=== PATIENT | female | born 1985 | race Caucasian/White ===

== ENCOUNTER 2018-10-18 00:19 | Inpatient (IN) ==
--- OUTSIDE RECORDS SUMMARY | 2018-10-18 00:24 | External Medical Summary | Continuity of Care Document ---
:1985 Author Name Luz Elena Gutierrez Address Unavailable Unavailable , Care Team Providers Name Role Phone Unavailable Unavailable Unavailable Joe Veras III, M.D. Unavailable [email or web address] NEHEMIAS VERAS M.D., Natty Unavailable Unavailable Unavailable Unavailable Unavailable Problems Headache (784.0) (R51) Abdominal pain (789.00) (R10.9) Acute sinusitis (461.9) (J01.90) Esophageal reflux (530.81) (K21.9) Chronic obstructive pulmonary disease (496) (J44.9) Vaginal candidiasis (112.1) (B37.3) Nausea with vomiting (787.01) (R11.2) Allergies and Adverse Reactions Codeine Derivatives (Allergy) Erythromycin Derivatives (Allergy) Medications Pre-Satish Formula Oral Tablet KINDRA Danielle tart: 24-Apr-2010 Refills: 0 Fluconazole 150 MG Oral Tablet; TAKE ONE TABLET ONCE DAILY, MAY REPEAT IN 24 HOURS IF NEEDED. KINDRA Danielle Start: 12-Jun-2010 Quantity: 2 Refills: 0 raNITIdine HCl - 150 MG Oral Capsule; TAKE 1 CAPSULE T WICE DAILY. Brenda Veras III Start: 06-Nov-2010 Quantity: 60 Refills: 2 Procedures History of Knee Surgery Status: Complete d History of Elbow Surgery Status: Complet ed History of Diagnostic Esophagogastroduodenoscopy Status: Completed Immunizations Immunizations not documented Family History Unknown Family Member Family history of Diabetes Mellitus (V18.0) Status: Active Comments: Family History Family history of Hypertension (V17.49) Status: Active Comments: Family History Family history of Renal Disease Status: Active Comments : Family History Plan of Treatment Planned Observations Planned Goals not documented Results No Known Results Results not documented
[2018-10-18] MEDS: LACTATED RINGER'S 1,000 ML IV PRN ×4 (01:34→16:55)
[2018-10-18] MEDS ORDERED: OXYTOCIN 30 UNITS/500 ML BAG IV PRN ×3 (05:26→20:14)
[2018-10-18] MEDS ORDERED: LACTATED RINGER'S 1,000 ML IV PRN (05:26)
[2018-10-18 05:55] LABS: Hematocrit (blood only) 37.4 % (37-47); Hemoglobin 12.8 g/dL (12.0-16.0); Mean Corpuscular Volume 87.8 fL (80-100); Mean Platelet Volume 10.6 fL (7.4-10.4); Platelet Count 263 K/uL (130-400); RDW Coefficient of Variation 14.5 % (11.5-14.5); RDW Standard Deviation 46.2 fL (36.4-46.3); Red Blood Count 4.26 M/uL (4.2-5.4); White Blood Count 16.58 K/uL (4.8-10.8)
[2018-10-18 05:57] LABS: Mean Corpuscular Hgb Conc 34.2 g/dL (32-36)
[2018-10-18] MEDS ORDERED: BUPIVACAINE 0.25% 30 ML VIAL ONE ×3 (06:11→18:26)
[2018-10-18] MEDS ORDERED: ePHEDrine sulfate 50 MG/ML AMP ONE (06:12)
[2018-10-18] MEDS ORDERED: fentaNYL citrate 100 MCG/2 ML VIAL ONE ×2 (06:12→18:45)
[2018-10-18] MEDS ORDERED: fentaNYL 2MCG/ML ROPIV 1.25MG/ML 100 ML BAG EPI ONE (06:13)
[2018-10-18] MEDS ORDERED: ONDANSETRON INJ 2 MG/ML 2 ML VIAL IV PRN (06:18)
[2018-10-18] MEDS ORDERED: NALOXONE HCL 0.4 MG/1 ML VIAL/CARP IV PRN (06:18)
[2018-10-18] MEDS ORDERED: DiphenhydrAMINE HCL 50 MG/ML VIAL IV PRN (06:18)
[2018-10-18] MEDS ORDERED: NALOXONE HCL 1 MG in SODIUM CHLORIDE 0.9% 1000ML 1,000 ML IV PRN (06:18)
[2018-10-18] MEDS ORDERED: fentaNYL 2MCG/ML ROPIV 1.25MG/ML 100 ML BAG EPI PRN (06:18)
[2018-10-18] MEDS ORDERED: ePHEDrine sulfate 50 MG/ML AMP IV PRN (06:18)
--- NOTE | 2018-10-18 06:20 | Anesthesiology Consultation ---
Date of Service October 18, 2018 Assessment & Plan (1) Encounter for pre-operative examination: Chart Review Chart Review: Patient NOT seen in Pre Admission Testing and Acceptable Risk for Labor Epidural Consults Requested none History Height/Weight Height: 5 ft 4 in Weight: 101.605 kg Allergies Allergy/AdvReac Type Severity Reaction Status Date / Time codeine Allergy Unknown Unknown Verified 10/18/18 00:35 erythromycin base Allergy Unknown Unknown Verified 10/18/18 00:35 Medications Home Medications Medication Instructions Recorded Confirmed Last Taken PNV cmb#95-ferrous fumarate-FA 1 tab PO DAILY 10/18/18 10/18/18 10/16/18 20:00 [] doxylamine-pyridoxine (vit B6) 1 tab PO BID 10/18/18 10/18/18 10/17/18 20:00 [Diclegis] Active Medications Generic Name Dose Route Start Last Admin Trade Name Freq PRN Reason Stop Dose Admin Lactated Ringer's 1,000 mls @ 125 mls/hr 10/18/18 01:30 10/18/18 06:08 Lr IV 11/17/18 01:29 125 mls/hr .Q8H PRN Administration L&D Protocol Protocol Past Medical History Medical History Parker's cyst of knee Bartholin cyst Migraine Polyhydramnios with current Spontaneous vaginal delivery 11/2008 [facility] [place] 04/2010 LFC - daughter with coarctation of aorta - surgery at age 3 Exercise / Class Metabolic Activity II 4-5 Yardwork/Stairs/Walk up hill Past Family History Family History Grandmother (Maternal) Diabetes Hypertension Past Surgical History Surgical History Hx laparoscopic cholecystectomy 2010 Past Anesthesia History No Hx of Anesthesia Complications and No Family Hx of Anesthesia Complications History of PONV No Hx of PONV and No Hx of Motion Sickness Social History Smoking Status: Never smoker Hx Alcohol Use: No Hx Substance Use: No Physical Exam Vital Signs Last Vital Signs Temp 37.0 C 10/18/18 05:05 Pulse 94 H 10/18/18 06:37 Resp 18 10/18/18 04:36 BP 139/65 10/18/18 06:37 Pulse Ox 99 10/18/18 06:34 Testing Laboratory Results 10/18/18 05:45
--- NOTE | 2018-10-18 06:40 | Labor Progress Brief Note ---
Date of Service October 18, 2018 Pt admitted for SROM H&P done FHR; CAT 1 after position change and IVH VE: 1cm by nurse ctx; 2-3mins pt requesting epidural analgesia Results & Data Vital Signs (Past 12 Hours) Vital Signs Temp Pulse Resp BP Pulse Ox 10/18/18 06:37 94 H 139/65 10/18/18 06:34 92 H 99 10/18/18 06:29 85 100 10/18/18 06:24 93 H 100 10/18/18 06:20 82 128/66 10/18/18 06:19 85 99 10/18/18 05:05 37.0 C 10/18/18 04:36 36.9 C 94 H 18 135/88 10/18/18 00:39 36.9 C 89 20 133/85 10/18/18 00:27 36.9 C 20 10/18/18 00:26 89 133/85
--- NOTE | 2018-10-18 10:05 | History and Physical Report ---
DATE OF ADMISSION: 10/18/2018 HISTORY OF PRESENT ILLNESS: The patient is a 33-year-old G3, P2, due date 11/14/2018 making it 36 weeks and 1 day, presented to labor and delivery with contractions every 3-4 minutes. The patient was observed for several hours. On arrival to labor and delivery, the patient had repeated late decelerations. The patient's position was changed. The strip improved to category 1. She was observed for several hours and eventually had spontaneous rupture of membranes, which was clear. Decision was therefore made to admit the patient. COURSE: Has been unremarkable except for history of gestational diabetes, on medications, and polyhydramnios. PAST MEDICAL HISTORY: 1. History of Bartholin glands abscess. 2. Nevus. 3. Depression. 4. Obesity class 1. 5. Migraines. 6. Anxiety. PAST SURGICAL HISTORY: History of laparoscopy and cholecystectomy with cholangiography. SOCIAL HISTORY: The patient denies tobacco, drug, or alcohol use. OBSTETRIC AND GYNECOLOGIC HISTORY: The patient had 2 vaginal deliveries, both were term, delivered a 7 pound 11 ounce baby in 2008 and a 6 pound 11 ounce baby in April 2010. PHYSICAL EXAMINATION: GENERAL: Well-developed, well-nourished white female in no acute distress. VITAL SIGNS: Blood pressure 96/95, pulse is 90, respirations 18. HEART: S1, S2, regular rhythm and rate. LUNGS: Clear to auscultation bilaterally. ABDOMEN: Gravid. heart rate is category 1. PELVIC: Last pelvic exam shows she was 4 cm dilated and -1 station. EXTREMITIES: No cyanosis, clubbing, or edema. ASSESSMENT: 1. A 33-year-old 3, para 2, with premature rupture of membranes. 2. Gestational diabetes. 3. Polyhydramnios. PLAN: Anticipate vaginal delivery.
[2018-10-18] MEDS ORDERED: ACETAMINOPHEN 325 MG TAB PO STA (10:32)
--- NOTE | 2018-10-18 12:40 | Labor Progress Brief Note ---
Date of Service October 18, 2018 Pt doing well FHR; CAT1 Ctx. 5-7 mins VE; 5-6/50/-1 will start Pitocin Results & Data Vital Signs (Past 12 Hours) Vital Signs Temp Pulse Resp BP Pulse Ox 10/18/18 12:34 89 100 10/18/18 12:33 83 135/63 10/18/18 12:29 87 98 10/18/18 12:24 84 99 10/18/18 12:19 88 141/75 H 100 10/18/18 12:14 84 98 10/18/18 12:09 85 98 10/18/18 12:05 81 122/78 10/18/18 12:04 80 99 10/18/18 11:59 82 98 10/18/18 11:54 100 H 98 10/18/18 11:50 82 102/62 10/18/18 11:49 83 98 10/18/18 11:44 85 98 10/18/18 11:39 88 99 10/18/18 11:34 82 99 10/18/18 11:33 77 114/69 10/18/18 11:30 18 10/18/18 11:29 85 98 10/18/18 11:24 97 H 99 10/18/18 11:19 94 H 99 10/18/18 11:18 84 104/63 10/18/18 11:14 95 H 99 10/18/18 11:09 104 H 99 10/18/18 11:04 81 102/55 L 99 10/18/18 11:00 18 10/18/18 10:59 85 98 10/18/18 10:54 90 98 10/18/18 10:49 95 H 99 10/18/18 10:48 85 114/64 10/18/18 10:44 87 99 10/18/18 10:39 83 98 10/18/18 10:34 86 117/72 98 10/18/18 10:30 18 10/18/18 10:29 84 98 10/18/18 10:24 80 99 10/18/18 10:19 84 114/57 L 100 10/18/18 10:14 84 100 10/18/18 10:09 95 H 99 10/18/18 10:04 80 99 10/18/18 10:03 90 120/70 10/18/18 10:00 18 10/18/18 09:59 81 99 10/18/18 09:54 81 100 10/18/18 09:49 80 100 10/18/18 09:48 83 120/68 10/18/18 09:44 78 99 10/18/18 09:39 78 100 10/18/18 09:34 86 127/70 100 10/18/18 09:30 18 10/18/18 09:29 82 100 10/18/18 09:24 81 99 10/18/18 09:19 81 100 10/18/18 09:18 85 122/74 10/18/18 09:14 107 H 98 10/18/18 09:09 94 H 100 10/18/18 09:04 89 100 10/18/18 09:03 84 110/67 10/18/18 09:01 36.6 C 10/18/18 09:00 18 10/18/18 08:59 91 H 100 10/18/18 08:54 82 100 10/18/18 08:49 95 H 100 10/18/18 08:48 89 107/66 10/18/18 08:44 125 H 100 10/18/18 08:39 92 H 99 10/18/18 08:34 87 99 10/18/18 08:33 99 H 100/53 L 10/18/18 08:30 18 10/18/18 08:29 87 98 10/18/18 08:24 90 99 10/18/18 08:19 109 H 99 10/18/18 08:18 123 H 96/55 L 10/18/18 08:14 78 99 10/18/18 08:09 99 H 100 10/18/18 08:04 85 108/64 100 10/18/18 08:00 18 10/18/18 07:59 80 99 10/18/18 07:54 81 98 10/18/18 07:49 127 H 100 10/18/18 07:48 115 H 119/57 L 10/18/18 07:45 18 10/18/18 07:44 113 H 100 10/18/18 07:39 101 H 100 10/18/18 07:34 84 124/66 99 10/18/18 07:31 18 10/18/18 07:29 76 98 10/18/18 07:24 109 H 100 10/18/18 07:19 119 H 100 10/18/18 07:18 103 H 118/60 10/18/18 07:16 127 H 18 118/62 10/18/18 07:14 122 H 121/62 100 10/18/18 07:12 115 H 120/60 10/18/18 07:10 96 H 125/61 10/18/18 07:09 99 H 100 10/18/18 07:08 89 129/60 10/18/18 07:06 100 H 123/60 10/18/18 07:05 36.7 C 18 10/18/18 07:04 92 H 128/60 100 10/18/18 07:02 96 H 121/63 10/18/18 07:00 97 H 122/63 10/18/18 06:59 103 H 100 10/18/18 06:57 95 H 116/56 L 10/18/18 06:56 96 H 114/63 10/18/18 06:54 94 H 113/59 L 100 10/18/18 06:52 94 H 116/59 L 10/18/18 06:50 96 H 109/57 L 10/18/18 06:49 96 H 100 10/18/18 06:48 91 H 113/58 L 10/18/18 06:46 95 H 115/56 L 10/18/18 06:44 91 H 114/58 L 99 10/18/18 06:42 91 H 110/57 L 10/18/18 06:39 96 H 100 10/18/18 06:37 94 H 139/65 10/18/18 06:34 92 H 99 10/18/18 06:29 85 100 10/18/18 06:24 93 H 100 10/18/18 06:20 82 128/66 10/18/18 06:19 85 99 10/18/18 05:05 37.0 C 10/18/18 04:36 36.9 C 94 H 18 135/88
[2018-10-18] MEDS ORDERED: ACETAMINOPHEN 325 MG TAB PO PRN ×3 (15:03→20:14)
--- NOTE | 2018-10-18 17:22 | Labor Progress Brief Note ---
Date of Service October 18, 2018 Pt doing well SROM Afebrile, No abd tenderness, No foul disch VE; 8/72/-1 Pitocin d/secd because of poor tracing Oxygen given and infanr resusitated FHR is much improved scalp is placed Results & Data Vital Signs (Past 12 Hours) Vital Signs Temp Pulse Resp BP Pulse Ox 10/18/18 17:18 77 127/68 10/18/18 17:14 79 100 10/18/18 17:09 81 100 10/18/18 17:04 77 100 10/18/18 17:03 76 128/69 10/18/18 17:01 37.1 C 18 10/18/18 17:00 18 10/18/18 16:59 77 100 10/18/18 16:54 95 H 100 10/18/18 16:49 76 130/64 100 10/18/18 16:44 74 100 10/18/18 16:39 83 100 10/18/18 16:34 83 100 10/18/18 16:33 78 121/67 10/18/18 16:30 18 10/18/18 16:29 78 100 10/18/18 16:24 73 100 10/18/18 16:19 71 129/74 100 10/18/18 16:14 79 100 10/18/18 16:09 79 100 10/18/18 16:04 78 100 10/18/18 16:03 73 127/76 10/18/18 16:00 18 10/18/18 15:59 76 100 10/18/18 15:54 80 99 10/18/18 15:49 88 100 10/18/18 15:48 88 130/78 10/18/18 15:44 89 100 10/18/18 15:39 75 99 10/18/18 15:34 76 124/66 99 10/18/18 15:29 81 99 10/18/18 15:24 85 99 10/18/18 15:19 88 118/71 99 10/18/18 15:14 110 H 100 10/18/18 15:09 82 99 10/18/18 15:04 89 115/64 98 10/18/18 15:00 18 10/18/18 14:59 87 99 10/18/18 14:55 36.8 C 10/18/18 14:54 107 H 99 10/18/18 14:49 85 98 10/18/18 14:48 99 H 117/69 10/18/18 14:44 80 98 10/18/18 14:39 109 H 98 10/18/18 14:34 110 H 99 10/18/18 14:33 87 117/62 10/18/18 14:30 18 10/18/18 14:29 108 H 99 10/18/18 14:24 81 99 10/18/18 14:19 85 99 10/18/18 14:18 80 117/61 10/18/18 14:17 77 111/62 10/18/18 14:14 87 99 10/18/18 14:09 83 98 10/18/18 14:05 80 119/67 10/18/18 14:04 76 99 10/18/18 13:59 77 98 10/18/18 13:54 86 99 10/18/18 13:49 82 99 10/18/18 13:48 83 111/67 10/18/18 13:44 78 98 10/18/18 13:39 86 98 10/18/18 13:34 95 H 99 10/18/18 13:33 85 117/58 L 10/18/18 13:30 18 10/18/18 13:29 78 98 10/18/18 13:24 79 98 10/18/18 13:19 73 120/58 L 98 10/18/18 13:14 75 97 10/18/18 13:09 78 99 10/18/18 13:04 76 120/64 98 10/18/18 13:00 36.9 C 18 10/18/18 12:59 87 99 10/18/18 12:54 85 98 10/18/18 12:49 87 98 10/18/18 12:44 90 98 10/18/18 12:39 83 98 10/18/18 12:34 89 100 10/18/18 12:33 83 135/63 10/18/18 12:30 18 10/18/18 12:29 87 98 10/18/18 12:24 84 99 10/18/18 12:19 88 141/75 H 100 10/18/18 12:14 84 98 10/18/18 12:09 85 98 10/18/18 12:05 81 122/78 10/18/18 12:04 80 99 10/18/18 11:59 82 98 10/18/18 11:54 100 H 98 10/18/18 11:50 82 102/62 10/18/18 11:49 83 98 10/18/18 11:44 85 98 10/18/18 11:39 88 99 10/18/18 11:34 82 99 10/18/18 11:33 77 114/69 10/18/18 11:30 18 10/18/18 11:29 85 98 10/18/18 11:24 97 H 99 10/18/18 11:19 94 H 99 10/18/18 11:18 84 104/63 10/18/18 11:14 95 H 99 10/18/18 11:09 104 H 99 10/18/18 11:04 81 102/55 L 99 10/18/18 11:01 36.6 C 10/18/18 11:00 18 10/18/18 10:59 85 98 10/18/18 10:54 90 98 10/18/18 10:49 95 H 99 10/18/18 10:48 85 114/64 10/18/18 10:44 87 99 10/18/18 10:39 83 98 10/18/18 10:34 86 117/72 98 10/18/18 10:30 18 10/18/18 10:29 84 98 10/18/18 10:24 80 99 10/18/18 10:19 84 114/57 L 100 10/18/18 10:14 84 100 10/18/18 10:09 95 H 99 10/18/18 10:04 80 99 10/18/18 10:03 90 120/70 10/18/18 10:00 18 10/18/18 09:59 81 99 10/18/18 09:54 81 100 10/18/18 09:49 80 100 10/18/18 09:48 83 120/68 10/18/18 09:44 78 99 10/18/18 09:39 78 100 10/18/18 09:34 86 127/70 100 10/18/18 09:30 18 10/18/18 09:29 82 100 10/18/18 09:24 81 99 10/18/18 09:19 81 100 10/18/18 09:18 85 122/74 10/18/18 09:14 107 H 98 10/18/18 09:09 94 H 100 10/18/18 09:04 89 100 10/18/18 09:03 84 110/67 10/18/18 09:01 36.6 C 10/18/18 09:00 18 10/18/18 08:59 91 H 100 10/18/18 08:54 82 100 10/18/18 08:49 95 H 100 10/18/18 08:48 89 107/66 10/18/18 08:44 125 H 100 10/18/18 08:39 92 H 99 10/18/18 08:34 87 99 10/18/18 08:33 99 H 100/53 L 10/18/18 08:30 18 10/18/18 08:29 87 98 10/18/18 08:24 90 99 10/18/18 08:19 109 H 99 10/18/18 08:18 123 H 96/55 L 10/18/18 08:14 78 99 10/18/18 08:09 99 H 100 10/18/18 08:04 85 108/64 100 10/18/18 08:00 18 10/18/18 07:59 80 99 10/18/18 07:54 81 98 10/18/18 07:49 127 H 100 10/18/18 07:48 115 H 119/57 L 10/18/18 07:45 18 10/18/18 07:44 113 H 100 10/18/18 07:39 101 H 100 10/18/18 07:34 84 124/66 99 10/18/18 07:31 18 10/18/18 07:29 76 98 10/18/18 07:24 109 H 100 10/18/18 07:19 119 H 100 10/18/18 07:18 103 H 118/60 10/18/18 07:16 127 H 18 118/62 10/18/18 07:14 122 H 121/62 100 10/18/18 07:12 115 H 120/60 10/18/18 07:10 96 H 125/61 10/18/18 07:09 99 H 100 10/18/18 07:08 89 129/60 10/18/18 07:06 100 H 123/60 10/18/18 07:05 36.7 C 18 10/18/18 07:04 92 H 128/60 100 10/18/18 07:02 96 H 121/63 10/18/18 07:00 97 H 122/63 10/18/18 06:59 103 H 100 10/18/18 06:57 95 H 116/56 L 10/18/18 06:56 96 H 114/63 10/18/18 06:54 94 H 113/59 L 100 10/18/18 06:52 94 H 116/59 L 10/18/18 06:50 96 H 109/57 L 10/18/18 06:49 96 H 100 10/18/18 06:48 91 H 113/58 L 10/18/18 06:46 95 H 115/56 L 10/18/18 06:44 91 H 114/58 L 99 10/18/18 06:42 91 H 110/57 L 10/18/18 06:39 96 H 100 10/18/18 06:37 94 H 139/65 10/18/18 06:34 92 H 99 10/18/18 06:29 85 100 10/18/18 06:24 93 H 100 10/18/18 06:20 82 128/66 10/18/18 06:19 85 99
[2018-10-18] MEDS ORDERED: fentaNYL citrate 100 MCG/2 ML VIAL INT SPINAL STA (18:47)
[2018-10-18] MEDS ORDERED: METHYLERGONOVINE MALEATE 0.2 MG/ML AMP ONE (20:07)
[2018-10-18] MEDS ORDERED: SUPERCREAM 0.870% 15 GM JAR EXT PRN (20:14)
[2018-10-18] MEDS ORDERED: BISACODYL 10 MG SUPP PR PRN (20:14)
[2018-10-18] MEDS ORDERED: DIPHTHERIA/TETANUS/PERTUSSIS 0.5 ML SYR/VIAL IM ONE (20:14)
[2018-10-18] MEDS ORDERED: BENZOCAINE 20% AER SPR 82.5 GM CAN EXT PRN (20:14)
[2018-10-18] MEDS ORDERED: miSOPROStol 200 MCG TAB PR ONE (20:14)
[2018-10-18] MEDS ORDERED: HYDROCORTISONE ACETATE 25 MG SUPP PR PRN (20:14)
[2018-10-18] MEDS ORDERED: METHYLERGONOVINE MALEATE 0.2 MG/ML AMP IM ONE (20:14)
[2018-10-18] MEDS ORDERED: ONDANSETRON INJ 2 MG/ML 2 ML VIAL ONE (20:29)
[2018-10-18 20:32] LABS: Base Excess Cord Arterial Bld -4.4 mEq/L (-9-1.8); CO2 Cord Arterial Blood 59 mmHg (39.1-73.5); HCO3 Cord Arterial Blood 24 mmol/L (19.7-28.5); pH Cord Arterial Blood 7.23 (7.1-7.38)
[2018-10-18 20:41] LABS: Base Excess Cord Venous Blood -2.5 mEq/L (-7.7-1.9); Cord Venous Blood HCO3 24 mmol/L (18.4-26.8); Cord Venous Blood PCO2 48 mmHg (30.4-57.2); Cord Venous Blood PO2 15 mmHg (14.1-43.3); Cord Venous Blood pH 7.32 (7.20-7.44)
[2018-10-18 20:43] LABS: O2 Saturation Cord Venous Bld < 60.0 % (<68)
--- NOTE | 2018-10-18 22:11 | Anesthesia Procedure Note ---
Date of Service October 18, 2018 Anesthesia Post Epidural Note Vital Signs Vital Signs: Temp Pulse Resp BP Pulse Ox 10/18/18 21:48 88 156/75 H 10/18/18 21:18 90 130/62 10/18/18 21:03 88 126/60 10/18/18 20:48 127/65 10/18/18 20:33 90 134/70 10/18/18 20:27 93 H 137/72 10/18/18 20:26 112 H 167/101 H 10/18/18 20:19 109 H 125/81 10/18/18 20:04 115 H 100 10/18/18 19:59 152 H 100 10/18/18 19:54 123 H 100 10/18/18 19:50 93 H 79 L 10/18/18 19:49 111 H 99 10/18/18 19:48 106 H 149/61 H 10/18/18 19:44 98 H 100 10/18/18 19:39 82 100 10/18/18 19:34 84 127/60 100 10/18/18 19:29 78 100 10/18/18 19:24 82 100 10/18/18 19:20 83 133/68 10/18/18 19:19 103 H 100 10/18/18 19:14 80 100 10/18/18 19:09 89 100 10/18/18 19:04 78 136/67 100 10/18/18 19:00 18 10/18/18 18:59 85 100 10/18/18 18:54 80 100 10/18/18 18:49 82 136/66 100 10/18/18 18:44 82 100 10/18/18 18:39 84 100 10/18/18 18:34 76 138/68 100 10/18/18 18:30 18 10/18/18 18:29 82 100 10/18/18 18:24 80 100 10/18/18 18:19 82 100 10/18/18 18:18 86 138/70 10/18/18 18:14 78 100 10/18/18 18:09 80 100 10/18/18 18:04 75 123/66 100 10/18/18 18:00 18 10/18/18 17:59 76 100 10/18/18 17:54 80 99 10/18/18 17:49 82 124/66 100 10/18/18 17:44 88 100 10/18/18 17:39 77 100 10/18/18 17:35 81 90 10/18/18 17:34 77 126/67 100 10/18/18 17:30 18 10/18/18 17:29 80 100 10/18/18 17:24 78 100 10/18/18 17:19 76 100 10/18/18 17:18 77 127/68 10/18/18 17:14 79 100 10/18/18 17:09 81 100 10/18/18 17:04 77 100 10/18/18 17:03 76 128/69 10/18/18 17:01 37.1 C 18 10/18/18 17:00 18 10/18/18 16:59 77 100 10/18/18 16:54 95 H 100 10/18/18 16:49 76 130/64 100 10/18/18 16:44 74 100 10/18/18 16:39 83 100 10/18/18 16:34 83 100 10/18/18 16:33 78 121/67 10/18/18 16:30 18 10/18/18 16:29 78 100 10/18/18 16:24 73 100 10/18/18 16:19 71 129/74 100 10/18/18 16:14 79 100 10/18/18 16:09 79 100 10/18/18 16:04 78 100 10/18/18 16:03 73 127/76 10/18/18 16:00 18 10/18/18 15:59 76 100 10/18/18 15:54 80 99 10/18/18 15:49 88 100 10/18/18 15:48 88 130/78 10/18/18 15:44 89 100 10/18/18 15:39 75 99 10/18/18 15:34 76 124/66 99 10/18/18 15:29 81 99 10/18/18 15:24 85 99 10/18/18 15:19 88 118/71 99 10/18/18 15:14 110 H 100 10/18/18 15:09 82 99 10/18/18 15:04 89 115/64 98 10/18/18 15:00 18 10/18/18 14:59 87 99 10/18/18 14:55 36.8 C 10/18/18 14:54 107 H 99 10/18/18 14:49 85 98 10/18/18 14:48 99 H 117/69 10/18/18 14:44 80 98 10/18/18 14:39 109 H 98 10/18/18 14:34 110 H 99 10/18/18 14:33 87 117/62 10/18/18 14:30 18 10/18/18 14:29 108 H 99 10/18/18 14:24 81 99 10/18/18 14:19 85 99 10/18/18 14:18 80 117/61 10/18/18 14:17 77 111/62 10/18/18 14:14 87 99 10/18/18 14:09 83 98 10/18/18 14:05 80 119/67 10/18/18 14:04 76 99 10/18/18 13:59 77 98 10/18/18 13:54 86 99 10/18/18 13:49 82 99 10/18/18 13:48 83 111/67 10/18/18 13:44 78 98 10/18/18 13:39 86 98 10/18/18 13:34 95 H 99 10/18/18 13:33 85 117/58 L 10/18/18 13:30 18 10/18/18 13:29 78 98 10/18/18 13:24 79 98 10/18/18 13:19 73 120/58 L 98 10/18/18 13:14 75 97 10/18/18 13:09 78 99 10/18/18 13:04 76 120/64 98 10/18/18 13:00 36.9 C 18 10/18/18 12:59 87 99 10/18/18 12:54 85 98 10/18/18 12:49 87 98 10/18/18 12:44 90 98 10/18/18 12:39 83 98 10/18/18 12:34 89 100 10/18/18 12:33 83 135/63 10/18/18 12:30 18 10/18/18 12:29 87 98 10/18/18 12:24 84 99 10/18/18 12:19 88 141/75 H 100 10/18/18 12:14 84 98 10/18/18 12:09 85 98 10/18/18 12:05 81 122/78 10/18/18 12:04 80 99 10/18/18 11:59 82 98 10/18/18 11:54 100 H 98 10/18/18 11:50 82 102/62 10/18/18 11:49 83 98 10/18/18 11:44 85 98 10/18/18 11:39 88 99 10/18/18 11:34 82 99 10/18/18 11:33 77 114/69 10/18/18 11:30 18 10/18/18 11:29 85 98 10/18/18 11:24 97 H 99 10/18/18 11:19 94 H 99 10/18/18 11:18 84 104/63 10/18/18 11:14 95 H 99 10/18/18 11:09 104 H 99 10/18/18 11:04 81 102/55 L 99 10/18/18 11:01 36.6 C 10/18/18 11:00 18 10/18/18 10:59 85 98 10/18/18 10:54 90 98 10/18/18 10:49 95 H 99 10/18/18 10:48 85 114/64 10/18/18 10:44 87 99 10/18/18 10:39 83 98 10/18/18 10:34 86 117/72 98 10/18/18 10:30 18 10/18/18 10:29 84 98 10/18/18 10:24 80 99 10/18/18 10:19 84 114/57 L 100 10/18/18 10:14 84 100 10/18/18 10:09 95 H 99 10/18/18 10:04 80 99 10/18/18 10:03 90 120/70 10/18/18 10:00 18 10/18/18 09:59 81 99 10/18/18 09:54 81 100 10/18/18 09:49 80 100 10/18/18 09:48 83 120/68 10/18/18 09:44 78 99 10/18/18 09:39 78 100 10/18/18 09:34 86 127/70 100 10/18/18 09:30 18 10/18/18 09:29 82 100 10/18/18 09:24 81 99 10/18/18 09:19 81 100 10/18/18 09:18 85 122/74 10/18/18 09:14 107 H 98 10/18/18 09:09 94 H 100 10/18/18 09:04 89 100 10/18/18 09:03 84 110/67 10/18/18 09:01 36.6 C 10/18/18 09:00 18 10/18/18 08:59 91 H 100 10/18/18 08:54 82 100 10/18/18 08:49 95 H 100 10/18/18 08:48 89 107/66 10/18/18 08:44 125 H 100 10/18/18 08:39 92 H 99 10/18/18 08:34 87 99 10/18/18 08:33 99 H 100/53 L 10/18/18 08:30 18 10/18/18 08:29 87 98 10/18/18 08:24 90 99 10/18/18 08:19 109 H 99 10/18/18 08:18 123 H 96/55 L 10/18/18 08:14 78 99 10/18/18 08:09 99 H 100 10/18/18 08:04 85 108/64 100 10/18/18 08:00 18 10/18/18 07:59 80 99 10/18/18 07:54 81 98 10/18/18 07:49 127 H 100 10/18/18 07:48 115 H 119/57 L 10/18/18 07:45 18 10/18/18 07:44 113 H 100 10/18/18 07:39 101 H 100 10/18/18 07:34 84 124/66 99 10/18/18 07:31 18 10/18/18 07:29 76 98 10/18/18 07:24 109 H 100 10/18/18 07:19 119 H 100 10/18/18 07:18 103 H 118/60 10/18/18 07:16 127 H 18 118/62 10/18/18 07:14 122 H 121/62 100 10/18/18 07:12 115 H 120/60 10/18/18 07:10 96 H 125/61 10/18/18 07:09 99 H 100 10/18/18 07:08 89 129/60 10/18/18 07:06 100 H 123/60 10/18/18 07:05 36.7 C 18 10/18/18 07:04 92 H 128/60 100 10/18/18 07:02 96 H 121/63 10/18/18 07:00 97 H 122/63 10/18/18 06:59 103 H 100 10/18/18 06:57 95 H 116/56 L 10/18/18 06:56 96 H 114/63 10/18/18 06:54 94 H 113/59 L 100 10/18/18 06:52 94 H 116/59 L 10/18/18 06:50 96 H 109/57 L 10/18/18 06:49 96 H 100 10/18/18 06:48 91 H 113/58 L 10/18/18 06:46 95 H 115/56 L 10/18/18 06:44 91 H 114/58 L 99 10/18/18 06:42 91 H 110/57 L 10/18/18 06:39 96 H 100 10/18/18 06:37 94 H 139/65 10/18/18 06:34 92 H 99 10/18/18 06:29 85 100 10/18/18 06:24 93 H 100 10/18/18 06:20 82 128/66 10/18/18 06:19 85 99 10/18/18 05:05 37.0 C 10/18/18 04:36 36.9 C 94 H 18 135/88 10/18/18 00:39 36.9 C 89 20 133/85 10/18/18 00:27 36.9 C 20 10/18/18 00:26 89 133/85 Pain Intensity Bilateral Abdomen: Pain Intensity: 0 Notes Mental Status: alert / awake / arousable and participated in evaluation Nausea / Vomiting: adequately controlled Pain: adequately controlled Airway Patency, RR, SpO2: stable & adequate BP & HR: stable & adequate Hydration State: stable & adequate Neuraxial Anesthesia: was administered and sensory block is resolving Anesthetic Complications: no major complications apparent and Pt Satisfied with anesthetic care Epidural: Removed without complications and With tip intact
[2018-10-18] MEDS: IBUPROFEN 600 MG TAB PO PRN (23:13)
[2018-10-18] MEDS ORDERED: miSOPROStol 200 MCG TAB ONE (23:35)
[2018-10-18] MEDS: DOCUSATE SODIUM 100 MG CAP PO SCH (23:41)
[2018-10-19 06:37] LABS: Hematocrit (blood only) 35.9 % (37-47); Hemoglobin 12.2 g/dL (12.0-16.0); Mean Platelet Volume 10.5 fL (7.4-10.4); Platelet Count 232 K/uL (130-400); RDW Coefficient of Variation 14.3 % (11.5-14.5); RDW Standard Deviation 46.4 fL (36.4-46.3); Red Blood Count 4.08 M/uL (4.2-5.4); White Blood Count 19.43 K/uL (4.8-10.8)
--- NOTE | 2018-10-19 08:04 | Delivery Summary ---
DATE OF OPERATION: 10/18/2018 DELIVERY NOTE The patient delivered a live male in left occiput anterior presentation. There was no nuchal cord. Infant was delivered, placed on mother's abdomen. At this point, it was noted that the baby had cord wrapped around his right foot. Cord was clamped and cut and handed over to the pediatric team. Infant's weight and Apgars in the pediatric record. Cord blood and cord gas were obtained. Placenta was spontaneously delivered. Inspection of the placenta shows normal grossly looking placenta. There was no meconium. Evaluation of the perineum showed no laceration or tears. Estimated blood loss is 600 mL. There is good hemostasis. Baby and mother are doing well in Recovery. All instruments were removed from the vagina and accounted for including retractors and other instruments. I attest to the content of the Intraoperative Record and any orders documented therein. Any exception s are noted below.
[2018-10-19] MEDS: DOCUSATE SODIUM 100 MG CAP PO SCH ×2 (08:14→22:32)
[2018-10-19] MEDS: PRENATAL VITAMIN 1 TAB PO SCH (08:14)
[2018-10-19] MEDS: IBUPROFEN 600 MG TAB PO PRN ×3 (08:14→18:42)
[2018-10-19] MEDS: FERROUS SULFATE 325 MG TAB PO SCH (08:14)
--- NOTE | 2018-10-19 09:43 | Obstetrical Progress Note ---
Date of Service October 19, 2018 Assessment & Plan (1) normal course: PPD #1 pt doing well anticipate disch tomorrow Physical Exam Vital Signs (Past 24 Hours) Last Vital Signs Temp 36.7 C 10/19/18 07:55 Pulse 80 10/19/18 07:55 Resp 20 10/19/18 07:55 BP 126/59 L 10/19/18 07:55 Pulse Ox 97 10/19/18 03:10
[2018-10-19] MEDS ORDERED: BISACODYL 5 MG TABEC PO SCH (20:00)
[2018-10-20 06:40] LABS: Hematocrit (blood only) 33.6 % (37-47); Hemoglobin 11.2 g/dL (12.0-16.0)
--- NOTE | 2018-10-20 07:39 | Obstetrical Progress Note ---
Date of Service October 20, 2018 Assessment & Plan (1) normal course: Pt doing well No complaints disch home with instrcutions Physical Exam Vital Signs (Past 24 Hours) Last Vital Signs Temp 36.5 C 10/20/18 00:30 Pulse 65 10/20/18 00:30 Resp 18 10/20/18 00:30 BP 112/69 10/20/18 00:30 Pulse Ox 97 10/19/18 03:10
[2018-10-20] MEDS: DOCUSATE SODIUM 100 MG CAP PO SCH ×2 (08:03→19:49)
[2018-10-20] MEDS: FERROUS SULFATE 325 MG TAB PO SCH (08:03)
[2018-10-20] MEDS: PRENATAL VITAMIN 1 TAB PO SCH (08:03)
[2018-10-20] MEDS: IBUPROFEN 600 MG TAB PO PRN ×2 (12:10→19:49)
== END 2018-10-20 20:50 | disposition home or self-care (01) | DRG 807 ==
LOC: OPB 00:19 → 4S1 00:22 → 4S2 22:37